=== PATIENT | male | born 1945 | race Caucasian/White ===

== ENCOUNTER 2017-11-21 18:06 | Inpatient (IN) ==
[2017-11-21] MEDS ORDERED: Naloxone 0.4 MG/ML INJ IVP PRN (23:02)
[2017-11-21] MEDS ORDERED: *HR* OxyCODONE/APAP 10/325 TABLET PO PRN (23:07)
[2017-11-21] MEDS ORDERED: *HR* Dextrose 50 % in Water (Syg) 50 ML SYRINGE IVP PRN (23:25)
[2017-11-21] MEDS ORDERED: D5% in Water 1,000 ML IVC PRN (23:25)
[2017-11-21] MEDS ORDERED: Dextrose Gel 15 GM/37.5 ML TUBE PO PRN ×2 (23:25)
[2017-11-21] MEDS: Insulin LISPRO 300 UNITS/3 ML VIAL SQ SCH (23:39)
[2017-11-21] MEDS: *HR* OxyCODONE Immed Rel 5 MG TABLET PO SCH (23:40)
[2017-11-22] MEDS ORDERED: Ipratropium/Albuterol Neb 3 ML IH PRN (02:52)
[2017-11-22 05:29] LABS: Hemoglobin 9.5 g/dL (12.9-16.9); Mean Corpuscular HGB Conc 32.8 g/dL (31.6-35.5); Mean Corpuscular Hemoglobin 30.5 pg (28.0-33.3); Mean Corpuscular Volume 93.2 fL (83.0-100.0); Mean Platelet Volume 11.6 fL (9.4-12.4); Platelet Count 127 K/mcL (140-400); Red Blood Count 3.11 M/mcL (4.19-5.50); Red Cell Distribution Width 12.4 % (11.5-14.5)
[2017-11-22] MEDS: Insulin LISPRO 300 UNITS/3 ML VIAL SQ SCH ×3 (05:38→19:55)
[2017-11-22 05:51] LABS: Calcium 8.8 mg/dL (8.6-10.3); Potassium 5.7 mEq/L (3.5-5.1)
--- NOTE | 2017-11-22 06:37 | Internal Med History&Physical ---
Date of Encounter: 11/21/17 Time of Encounter: 22:00 Internal Medicine - H&P: HPI Chief complaint: CHF Admitted From: Hospital to Hospital Transfer Plans for Post Hospital Care: Home History of present illness: Mr. Lewis is a 72 year old male Patient presented to the [facility] for a 4 day history of a cough. He states that he feels a rattling in his chest, felt shortness of breath and it has progressively worsened. Worse when laying down, denies sick contacts. He has a significant past medical history of 3 MIs, and has 10 cardiac stents. He also has a history diabetes and multiple kidney stones, and feels like he may have another one now. He denies chest pain, nausea, vomiting, diarrhea and constipation. At the [facility] EKG was NSR with a rate of 53, QTc of 421. Chest x-ray showed mild congestion. BNP 1556. [facility] documentation not complete, despite 2 attempts at obtaining records. From what was sent with the patient he did receive 20mg of lasix at the [facility] and is urinating. Upon my assessment patient states that he still hears fluid in his lungs when he breaths. Past Med Surg Social Fam HX - Past Medical History Medical history: diabetes, kidney stones, myocardial infarction, renal disease Psychiatric history: no psych history - Past Surgical History Surgical History: appendectomy Additional surgical history: 10 CARDIAC STENTS - Social History Smoking Status: Never smoker Smokeless Tobacco Status: No Alcohol use: none Drug use: none Internal Medicine - H&P: Meds Aspirin 325 mg PO DAILY 10/31/15 [History] Cholecalciferol (D-3) [Vitamin D] 1,000 unit PO DAILY 10/31/15 [History] Clopidogrel [Plavix] 75 mg PO DAILY 10/31/15 [History] Cyanocobalamin (Vitamin B-12) [Vitamin B12] 1,000 mcg PO DAILY 10/31/15 [History ] Ferrous Sulfate 325 mg PO DAILY 10/31/15 [History] Glimepiride [Amaryl] 2 mg PO QAM 10/31/15 [History] Linagliptin [Tradjenta] 5 mg PO DAILY 10/31/15 [History] Lisinopril 2.5 mg PO DAILY 10/31/15 [History] Metformin HCl [Glucophage] 1,000 mg PO BID 10/31/15 [History] Nitroglycerin [Nitrostat] 0.4 mg SL AD PRN 10/31/15 [History] Nystatin Cream [Mycostatin Cream] 1 appl TP PRN PRN 10/31/15 [History] Oxycodone HCl/Acetaminophen [Percocet 10-325 mg Tablet] 1 tab PO Q6H PRN [History] Tamsulosin [Flomax] 0.4 mg PO DAILY 10/31/15 [History] Zolpidem [Ambien] 10 mg PO HS 10/31/15 [History] Ciprofloxacin [Cipro] 500 mg PO ONCE #1 tablet 11/01/15 [Rx] Docusate [Colace] 100 mg PO BID #60 capsule 11/01/15 [Rx] Phenazopyridine HCl [Pyridium] 200 mg PO TIDAC #12 tab 11/01/15 [Rx] OxyCODONE Immed Rel [Roxicodone 5 MG] 10 mg PO Q8HR 11/21/17 [History] 3 Allergy/AdvReac Type Severity Reaction Status Date / Time Iodinated Contrast- Oral and Allergy Rash Verified 10/31/15 08:36 IV Dye [Iodinated Contrast Media - IV Dye] All Systems PM: A 10-system review of systems was performed and is negative for pertinent findings except as documented above in the HPI. - Constitutional Vitals: Temp Pulse Resp BP Pulse Ox 98.7 F 54 17 103/42 94 11/22/17 04:45 11/22/17 04:45 11/22/17 04:45 11/22/17 04:45 11/22/17 04:45 General appearance: Present: cooperative, mild distress, A&O X 3, pleasant, answers questions appropriately Exam: as above - Head Head exam: Present: normal inspection - Eye Eye exam: Present: EOMI, normal appearance - Respiratory Respiratory exam: Present: rhonchi, wheezes - Cardiovascular Cardiovascular exam: Present: RRR. Absent: diastolic murmur, systolic murmur - GI/Abdominal GI/Abdominal exam: Present: normal bowel sounds, soft - Extremities Exam Extremities exam: Present: warm, radial pulses palpable and symmetrical. Absent : tenderness - Neurological Exam Neurological exam: Present: motor sensory deficit. Absent: facial droop, speech deficit Additional comments: Bilateral neuropathy, can not feel feet at baseline. - Skin Skin exam: Present: dry, normal color, warm Internal Med - H&P Results - Labs CBC & Chem 7: 11/22/17 04:49 11/22/17 04:49 Labs: Short CBC 11/22/17 Range/Units 04:49 WBC 7.2 (4.3-11.1) K/mcL Hgb 9.5 L (12.9-16.9) g/dL Hct 29.0 L (37.5-50.1) % Plt Count 127 L (140-400) K/mcL BMP 11/22/17 04:49 Sodium 135 L Potassium 5.7 H Chloride 111 H Carbon Dioxide 16 L BUN 54 H Creatinine 2.61 H Glucose 404 H Calcium 8.8 - Assessment and plan (1) CHF (congestive heart failure) Current Visit: Yes Status: Acute Assessment and plan: Patient has significant cardiac history, but no record of echo in our system. Patient unsure if he has been told he has CHF in the past. BNP 1556 at [facility]. Echo in the AM Lasix given at [facility] ER. Patient urinating, will monitor I&Os and daily weights. Caution use of lasix as patient has poor renal function. Consider cardiac consult after echocardiogram. Qualifiers: Qualified Code(s): I50.9 - Heart failure, unspecified (2) Hyperkalemia Current Visit: Yes Status: Acute Assessment and plan: At [facility] patient's potassium was 5.5, and he was given insulin, albuterol, Kayexalate. He also got 20mg of lasix. Repeat labs in the morning. (3) Diabetes Current Visit: Yes Status: Acute Assessment and plan: Patient takes metformin, linagliptin and glimepiride at home. Will hold home meds while inpatient. sliding scale insulin low dose Monitor sugars Q6H Qualifiers: Diabetes mellitus type: type 2 Diabetes mellitus prison insulin use: without ferry terminal supervisor use Diabetes mellitus complication status: with neurologic complications Diabetes mellitus complication detail: with polyneuropathy Qualified Code(s): E11.42 - Type 2 diabetes mellitus with diabetic polyneuropathy (4) CKD (chronic kidney disease) stage 4, GFR 15-29 ml/min Current Visit: Yes Status: Acute Assessment and plan: Monitor kidney function as patient received lasix at [facility] Recheck labs in AM. Consider nephrology consult if worsening. - Time Spent With Patient Total time spent is greater than 50% in coordination of care (as documented) at patient's floor/unit and/or counseling patient: Greater than 35 minutes
[2017-11-22] MEDS: Aspirin 325 MG TABLET PO SCH (08:06)
[2017-11-22] MEDS: *HR* OxyCODONE Immed Rel 5 MG TABLET PO SCH ×2 (08:06→16:00)
[2017-11-22] MEDS ORDERED: Albumin 25% 12.5gm/50mL 12.5 GM/50 ML IV.SOLN IVPB ONE (13:08)
[2017-11-22] MEDS ORDERED: Furosemide 40 MG/4 ML VIAL IVP ONE (13:12)
--- NOTE | 2017-11-22 14:46 | Nephrology Consult Note ---
Date of Encounter: 11/22/17 Time of Encounter: 14:00 Assessment and Plan (1) JAYESH (acute kidney injury) Current Visit: Yes Status: Acute Elevated SCr in the setting of possible volume overload rule out cardiorenal syndrome Agree with diuresis: s/p lasix 40mg x1 with albumin already, will continue Will check urine for UA. Will check urine urea, creatinine et al. Agree with avoiding nephrotoxins if possible Discussed at length with pt and family goals of care. No acute indication for thermometer maker at this time but pt open to this on a temporary basis for now (2) CKD (chronic kidney disease) stage 3, GFR 30-59 ml/min Current Visit: Yes Status: Acute Baseline GFR in the 30s (3) CHF (congestive heart failure) Current Visit: Yes Status: Acute Strict I/Os advised Agree with echo, results pending Flud restriction advised at 1.5 liters a day Duonebs prn Qualifiers: Qualified Code(s): I50.9 - Heart failure, unspecified (4) Hyperkalemia Current Visit: Yes Status: Acute Potassium noted at 5.7, should improve with diuresis Renal diet also advised History of Present Illness - Reason for Consult Consult date: 11/22/17 Acute Kidney Injury, Chronic Kidney Disease Requesting physician: Farrah Velasco - History of Present Illness 72 y o male with PMH of stage 3 CKD, DM, CAD s/ps multiple stents and kidney stones admitted as a transfer from [facility] where he presented with several day of SOB. Renal consulted for worsening renal fxn with SCr noted at 2.61, GFR 24 ( baseline GFR typically in the 30s) and volume overload. Pt was just seen by my associate last month at which time, he was stable in renal fxn. He denies any new meds. No NSAIDs. Echo pending today. Potassium noted elevated at 5.7 s/p lasix 20mg at [facility] and kayexalate. Past Med Surg Social Fam HX - Past Medical History Medical history: diabetes, kidney stones, myocardial infarction, renal disease Psychiatric history: no psych history - Past Surgical History Surgical History: appendectomy Additional surgical history: 10 CARDIAC STENTS - Social History Smoking Status: Never smoker Smokeless Tobacco Status: No Alcohol use: none Drug use: none Medications and Allergies Aspirin 325 mg PO DAILY 10/31/15 [History] Cholecalciferol (D-3) [Vitamin D] 5,000 mg PO DAILY 10/31/15 [History] Clopidogrel [Plavix] 75 mg PO DAILY 10/31/15 [History] Ferrous Sulfate 325 mg PO BID 10/31/15 [History] Linagliptin [Tradjenta] 5 mg PO DAILY 10/31/15 [History] Lisinopril 2.5 mg PO DAILY 10/31/15 [History] Nitroglycerin [Nitrostat] 0.4 mg SL AD PRN 10/31/15 [History] Zolpidem [Ambien] 10 mg PO HS 10/31/15 [History] Docusate [Colace] 100 mg PO BID #60 capsule 11/01/15 [Rx] Gabapentin [Neurontin] 600 mg PO TID 11/22/17 [History] Levothyroxine Sodium [Levoxyl] 75 mcg PO QAM 11/22/17 [History] Methadone 5 mg PO Q8HR 11/22/17 [History] Omeprazole [PriLOSEC] 40 mg PO DAILY 11/22/17 [History] OxyCODONE Immed Rel [Roxicodone 10 MG] 10 mg PO QID 11/22/17 [History] Pioglitazone HCl [Actos] 45 mg PO DAILY 11/22/17 [History] Sodium Bicarbonate 650 mg PO BID 11/22/17 [History] Tamsulosin HCl [Flomax] 0.4 mg PO DAILY 11/22/17 [History] 3 Allergy/AdvReac Type Severity Reaction Status Date / Time Iodinated Contrast- Oral and Allergy Rash Verified 11/22/17 10:50 IV Dye [Iodinated Contrast Media - IV Dye] Review of Systems All Systems: reviewed and no additional remarkable complaints except as stated ( 10 systems reviewed) Exam - Vital Signs Vital signs: Initial Vital Signs Temp Pulse Resp BP Pulse Ox 98.7 F 72 17 147/70 97 11/21/17 20:21 11/21/17 20:21 11/21/17 20:21 11/21/17 20:21 11/21/17 20:21 Vital Signs - Last 8 Hours Temp Pulse Resp BP Pulse Ox 11/22/17 11:13 97.7 F 58 17 123/56 96 11/22/17 09:30 95 11/22/17 07:59 97.7 F 54 18 125/65 95 Intake and Output 11/21/17 11/22/17 11/22/17 23:59 07:59 15:59 Intake Total Balance Intake: Oral Other: Weight 95.5 kg Blood Glucose* 380 311 120 Patient Weight 11/22/17 23:59 Weight 95.5 kg - General Appearance General appearance: well-developed, well-nourished EENT: ATNC, mucous membranes moist Neck: no JVD, supple Respiratory: course breath sounds Cardiology: edema (trace LE bilat), normal S1, normal S2 Gastrointestinal: no tenderness, no guarding Integumentary: warm and dry Neurologic: no focal deficit Musculoskeletal: no deformities Psychiatric: mood/affect appropriate Results - Lab Results 11/22/17 04:49 11/22/17 04:49 Most recent lab results Calcium 8.8 mg/dL (8.6-10.3) 11/22/17 04:49 Consult Discharge Plan - Plan Referrals: Fernanda Escalante MD [Primary Care Provider] -
--- NOTE | 2017-11-22 15:15 | Internal Med Progress Note ---
Hospitalist Progress Note - Encounter Date of Encounter: 11/22/17 Time of Encounter: 11:55 - Subjective Interval History: Patient seen and examined this morning. No acute overnight events. Admitted for shortness of breath. Minimal improvement in shortness of breath. No fever or chills. - Exam Vitals: Temp Pulse Resp BP Pulse Ox 97.7 F 58 17 123/56 96 11/22/17 11:13 11/22/17 11:13 11/22/17 11:13 11/22/17 11:13 11/22/17 11:13 Exam: Head exam: normal inspection Eye exam: EOMI, normal appearance Respiratory exam: diffuse rhonchi, wheezes, mildly decrease air entry Cardiovascular exam: RRR. S1, S2 normal, no diastolic murmur, systolic murmur GI/Abdominal exam: normal bowel sounds, soft Extremities exam: warm, radial pulses palpable and symmetrical. no tenderness Neurological exam: no motor sensory deficit. nofacial droop, speech deficit. Decreased sensation in feet b/l Skin exam: dry, normal color, warm - Summary of Assessment and Plan Summary of Assessment and Plan: CHF - With significant cardiac history, No ECHO record. BNP 1556 at [facility]. - f/u Echo - Strict I/O, salt and fluid restriction. - Will give lasix with albumin for diuresing and given hyperkalemia. Discussed with Nephrology. - Discussed in detail with patient about possibility of worsening kidney function with diuresis and short term need for dialysis. - Also wheezing on exam. Denies h/o smoking. Will start duonebs. edema occasionally can lead to wheezing. Hyperkalemia - At [facility] ER patient's potassium was 5.5, and he was given insulin, albuterol , Kayexalate, 20 mg IV lasix. - Potassium still elevated - Will attempt diuresis with albumin. Diabetes - hold metformin, linagliptin and glimepiride - sliding scale insulin low dose. Will introduce levemir cautiously given CKD tomorrow after monitoring blood sugar. - Accuchecks. CKD stage 3n - Monitor kidney function as patient received lasix at [facility] - Recheck labs in AM. - Nephrology consulted - Time Spent with Patient Total time spent is greater than 50% in coordination of care (as documented) at patient's floor/unit and/or counseling patient: Internal Medicine: Result - Labs CBC & Chem 7: 11/22/17 04:49 11/22/17 04:49 Labs: Short CBC 11/22/17 Range/Units 04:49 WBC 7.2 (4.3-11.1) K/mcL Hgb 9.5 L (12.9-16.9) g/dL Hct 29.0 L (37.5-50.1) % Plt Count 127 L (140-400) K/mcL BMP 11/22/17 04:49 Sodium 135 L Potassium 5.7 H Chloride 111 H Carbon Dioxide 16 L BUN 54 H Creatinine 2.61 H Glucose 404 H Calcium 8.8 Consult Discharge Plan - Plan Referrals: Fernanda Escalante MD [Primary Care Provider] -
[2017-11-22] MEDS ORDERED: Furosemide 40 MG/4 ML VIAL ONE (15:38)
[2017-11-22] MEDS: Gabapentin 300 MG CAPSULE PO SCH ×2 (15:41→22:15)
[2017-11-22] MEDS: *HR* Methadone 5 MG TABLET PO SCH (16:00)
[2017-11-22 16:08] LABS: Bilirubin,Urine Negative (Negative); Blood,Urine Negative (Negative); Clarity,Urine Clear (Clear); Color,Urine Yellow (Yellow); Glucose,Urine (UA) Normal (Normal); Ketones,Urine Negative (Negative); Leukocyte Esterase,Urine Negative (Negative); Nitrite,Urine Negative (Negative); PH,Urine 5.5 pH Units (5.0-8.0); Protein,Urine Negative (Neg-Trace); Specific Gravity,Urine 1.017 (1.010-1.025); Urobilinogen,Urine Normal (Normal)
[2017-11-22 16:16] LABS: Sodium, Urine 111.5 mEq/L
[2017-11-22] MEDS: Ipratropium/Albuterol Neb 3 ML IH SCH ×3 (16:16→21:35)
[2017-11-22] MEDS ORDERED: NON-FORMULARY MEDICATION 1 EACH EACH (Oxycodone Immed Rel 10 MG) PO SCH (17:00)
[2017-11-22] MEDS: Albumin 25% 25gram/100mL 25 GM/100 ML IV.SOLN IVPB SCH (19:47)
[2017-11-22] MEDS: Furosemide 40 MG/4 ML VIAL IVP SCH (22:14)
[2017-11-23] MEDS: *HR* Methadone 5 MG TABLET PO SCH ×4 (00:46→23:44)
[2017-11-23] MEDS: *HR* OxyCODONE Immed Rel 5 MG TABLET PO SCH ×4 (00:47→23:44)
[2017-11-23] MEDS: Ipratropium/Albuterol Neb 3 ML IH SCH ×4 (04:07→21:32)
[2017-11-23 07:38] LABS: Basophils % 0.2 %; Eosinophils # 0.1 K/mcL (0.0-0.6); Eosinophils % 0.9 %; Hematocrit 30.4 % (37.5-50.1); Hemoglobin 9.9 g/dL (12.9-16.9); Immature Granulocytes % 0.5 % (0-4); Lymphocytes # 1.6 K/mcL (0.6-4.6); Lymphocytes % 17.6 %; Mean Corpuscular HGB Conc 32.6 g/dL (31.6-35.5); Mean Corpuscular Volume 92.1 fL (83.0-100.0); Mean Platelet Volume 11.7 fL (9.4-12.4); Monocytes # 0.6 K/mcL (0.0-1.3); Monocytes % 6.8 %; Neutrophils # 6.5 K/mcL (1.6-8.9); Platelet Count 137 K/mcL (140-400); Red Cell Distribution Width 12.9 % (11.5-14.5)
[2017-11-23 07:46] LABS: Calcium 9.6 mg/dL (8.6-10.3); Potassium 4.7 mEq/L (3.5-5.1)
[2017-11-23] MEDS: Albumin 25% 25gram/100mL 25 GM/100 ML IV.SOLN IVPB SCH ×2 (07:52→17:48)
[2017-11-23] MEDS: Insulin LISPRO 300 UNITS/3 ML VIAL SQ SCH ×4 (07:53→20:45)
[2017-11-23] MEDS: Cholecalciferol (D-3) 1,000 UNIT TABLET PO SCH (09:52)
[2017-11-23] MEDS: Gabapentin 300 MG CAPSULE PO SCH ×3 (09:52→20:40)
[2017-11-23] MEDS: Aspirin 325 MG TABLET PO SCH (09:52)
[2017-11-23] MEDS: Furosemide 40 MG/4 ML VIAL IVP SCH ×2 (09:52→17:47)
--- NOTE | 2017-11-23 11:32 | Nephrology Progress Note ---
Date of Encounter: 11/23/17 Time of Encounter: 11:30 - Assessment and Plan (1) JAYESH (acute kidney injury) Current Visit: Yes Status: Acute SCr slightly improved at 2.51, GFR 25 UOP not documented yesterday, will re-emphasize strict I/Os with staff Continue current albumin/lasix regimen Urine studies unremarkable, Feurea noted at 36.6% Continue to avoid nephrotoxins if possible (2) CKD (chronic kidney disease) stage 3, GFR 30-59 ml/min Current Visit: Yes Status: Acute Baseline GFR in the 30s (3) CHF (congestive heart failure) Current Visit: Yes Status: Acute Strict I/Os advised Eho shows EF at 60% with diastolic function undetermined Flud restriction advised at 1.5 liters a day Duonebs prn Qualifiers: Heart failure type: diastolic Heart failure chronicity: acute Qualified Code(s): I50.31 - Acute diastolic (congestive) heart failure (4) Hyperkalemia Current Visit: Yes Status: Acute resolved, continue renal diet Subjective Interval history: Pt seen and examined with at bedside, feels better overall and breathing much better. Pt reports lots of UOP overnight though not documented Objective - Vital Signs Vital signs: Vital Signs Temp Pulse Resp BP Pulse Ox 11/23/17 08:27 23 97 11/23/17 08:23 98.1 F 81 17 126/64 95 11/23/17 04:07 16 97 11/23/17 03:52 98.3 F 57 17 138/68 97 11/23/17 00:24 98.1 F 59 17 131/69 97 11/22/17 21:35 16 98 11/22/17 19:30 97.7 F 55 17 127/67 95 11/22/17 16:19 18 97 11/22/17 16:18 97.7 F 54 18 131/71 97 11/22/17 16:07 97.7 F 54 18 131/71 97 Intake and Output 11/22/17 11/23/17 11/23/17 23:59 07:59 15:59 Intake Total 100 / 100 420 / 420 Output Total 0 / 0 500 / 500 Balance 100 / 100 -80 / -80 Intake: IV Fluids 100 / 100 100 / 100 Flexbumin 25 gm In 100 ml @ 60 100 / 100 100 / 100 mls/hr IVPB 0730,1630 ARIAN Rx#: [id number] Oral 0 / 0 320 / 320 Output: Urine 0 / 0 500 / 500 Other: Meal Breakfast Percent of Meal Consumed 25% # Voids 1 Blood Glucose* 180 EENT: Present: ATNC, mucous membranes moist Neck: Present: no JVD, supple Additional Comments: improved areation ant bilat Cardiology: Present: no edema, normal S1, normal S2 Gastrointestinal: Present: no tenderness, no guarding Integumentary: Present: warm and dry Neurologic: Present: no focal deficit Musculoskeletal: Present: no deformities Psychiatric: Present: mood/affect appropriate - Lab 11/23/17 06:37 11/23/17 06:37 Most recent lab results Calcium 9.6 mg/dL (8.6-10.3) 11/23/17 06:37 Urine Creatinine 103 mg/dL 11/22/17 15:50 Urine Sodium 111.5 mEq/L 11/22/17 15:50 - VTE Documentation of Mechanical Device: Intermittent pneumatic compression device Consult Discharge Plan - Plan Referrals: Fernanda Escalante MD [Primary Care Provider] -
--- NOTE | 2017-11-23 13:19 | Internal Med Progress Note ---
Hospitalist Progress Note - Encounter Date of Encounter: 11/23/17 Time of Encounter: 11:55 - Subjective Interval History: Patient seen and examined this morning. No acute overnight events. No fever or chills. Feeling better. Having good urine output. - Exam Vitals: Temp Pulse Resp BP Pulse Ox 97.9 F 74 19 121/65 94 11/23/17 12:55 11/23/17 12:55 11/23/17 12:55 11/23/17 12:55 11/23/17 12:55 Exam: Head exam: normal inspection Eye exam: EOMI, normal appearance Respiratory exam: diffuse rhonchi, wheezes, mildly decrease air entry Cardiovascular exam: RRR. S1, S2 normal, no diastolic murmur, systolic murmur GI/Abdominal exam: normal bowel sounds, soft Extremities exam: warm, radial pulses palpable and symmetrical. no tenderness Neurological exam: no motor sensory deficit. nofacial droop, speech deficit. Decreased sensation in feet b/l Skin exam: dry, normal color, warm - Summary of Assessment and Plan Summary of Assessment and Plan: CHF - With significant cardiac history, No ECHO record. BNP 1556 at [facility]. - Echo with EF of 60, intermediate diastolic diastolic function. - Strict I/O, salt and fluid restriction. Having good urine output but not charted well. - c/w lasix with albumin. - Discussed in detail with patient about possibility of worsening kidney function with diuresis and short term need for dialysis. JAYESH on CKD stage 3 - c/w albumin and lasix. FEurea 36 - Nephrology consulted Cough and wheezing - No h/o smoking. h/o previous bronchitis. Some h/o second hand exposure. 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 - Will start steroids and z-oralia. c/w Duonebs. Anemia - Will get iron panel tomorrow. No active bleeding - Possible from Renal disease. Hyperkalemia - resolved Diabetes - hold metformin, linagliptin and glimepiride - sliding scale insulin low dose. Will introduce levemir cautiously given CKD tomorrow after monitoring blood sugar. - Accuchecks. - Time Spent with Patient Total time spent is greater than 50% in coordination of care (as documented) at patient's floor/unit and/or counseling patient: Internal Medicine: Result - Labs CBC & Chem 7: 11/23/17 06:37 11/23/17 06:37 Labs: Short CBC 11/23/17 Range/Units 06:37 WBC 8.8 (4.3-11.1) K/mcL Hgb 9.9 L (12.9-16.9) g/dL Hct 30.4 L (37.5-50.1) % Plt Count 137 L (140-400) K/mcL Neutrophils # 6.5 (1.6-8.9) K/mcL BMP 11/23/17 06:37 Sodium 139 Potassium 4.7 Chloride 106 Carbon Dioxide 22 L BUN 59 H Creatinine 2.51 H Glucose 188 H Calcium 9.6 Urine 11/22/17 Range/Units 15:50 Urine Color Yellow (Yellow) Urine Clarity Clear (Clear) Urine pH 5.5 (5.0-8.0) pH Units Ur Specific [place] 1.017 (1.010-1.025) Urine Protein Negative (Neg-Trace) mg/dL Urine Glucose (UA) Normal (Normal) mg/dL - Impressions Impressions Echocardiogram 11/22/17 02:57 Impressions: LVEF 60%. Normal right ventricular structure and function. Mild mitral regurgitation. No pulmonary hypertension. Left Ventricular Wall Motion: Rest Echo Findings All wall segments showed normal motion. Findings: Study Quality * Technically adequate exam. ECG Findings * Sinus bradycardia. Left Ventricle * LVEF 60%. * Normal LV chamber size and wall thickness. * Indeterminate diastolic function. Right Ventricle * Normal right ventricular structure and function. Left Atrium * Mildly dilated left atrium. Right Atrium * Normal right atrial size. Mitral Valve * Normal mitral valve function. * No mitral stenosis. * Mild mitral regurgitation. Aortic Valve * Trileaflet aortic valve. * No aortic stenosis. * No aortic regurgitation. Tricuspid Valve * Tricuspid valve not well visualized. * No tricuspid regurgitation. * Estimated RA pressure is 3 mmHg. Pulmonic Valve * Pulmonic valve is not well visualized. * No pulmonic stenosis. * No pulmonic regurgitation. Pulmonary Artery * Pulmonary artery not well visualized. Aorta * Normally sized aortic root. Pericardium * There is no pericardial effusion present. Interatrial Septum * No evidence of PFO by color Doppler. IVC * Normal IVC dimensions and inspiratory collapse. Chest X-Ray 11/22/17 15:22 IMPRESSION: No acute cardiopulmonary disease. D/ / Sanchez Mccray MD / Sanchez Mccray MD Interpreting Provider: Sanchez Mccray MD - VTE Documentation of Mechanical Device: Intermittent pneumatic compression device Consult Discharge Plan - Plan Referrals: Fernanda Escalante MD [Primary Care Provider] -
[2017-11-23] MEDS ORDERED: Azithromycin 250 MG TABLET PO ONE (14:06)
[2017-11-23] MEDS: predniSONE 20 MG TABLET PO SCH (15:00)
[2017-11-24] MEDS: Ipratropium/Albuterol Neb 3 ML IH SCH ×4 (03:43→22:27)
[2017-11-24 06:16] LABS: Hematocrit 27.9 % (37.5-50.1); Hemoglobin 9.4 g/dL (12.9-16.9); Immature Granulocytes % 0.5 % (0-4); Lymphocytes # 0.6 K/mcL (0.6-4.6); Lymphocytes % 9.3 %; Mean Corpuscular HGB Conc 33.7 g/dL (31.6-35.5); Mean Corpuscular Volume 92.1 fL (83.0-100.0); Mean Platelet Volume 11.4 fL (9.4-12.4); Monocytes # 0.2 K/mcL (0.0-1.3); Monocytes % 3.9 %; Neutrophils # 5.3 K/mcL (1.6-8.9); Platelet Count 116 K/mcL (140-400); Red Blood Count 3.03 M/mcL (4.19-5.50); Red Cell Distribution Width 12.4 % (11.5-14.5); Segmented Neutrophils % 86.3 %
[2017-11-24 06:41] LABS: Calcium 9.4 mg/dL (8.6-10.3); Potassium 4.9 mEq/L (3.5-5.1)
[2017-11-24 06:43] LABS: % Iron Saturation 18 % (20-55); Iron 41 mcg/dL (65-175); Transferrin 163 mg/dL (203-362)
[2017-11-24 07:01] LABS: Ferritin 343 ng/mL (20-250)
[2017-11-24] MEDS: Aspirin 325 MG TABLET PO SCH (08:03)
[2017-11-24] MEDS: *HR* OxyCODONE Immed Rel 5 MG TABLET PO SCH ×2 (08:03→15:49)
[2017-11-24] MEDS: predniSONE 20 MG TABLET PO SCH (08:03)
[2017-11-24] MEDS: Gabapentin 300 MG CAPSULE PO SCH ×2 (08:04→15:49)
[2017-11-24] MEDS: Cholecalciferol (D-3) 1,000 UNIT TABLET PO SCH (08:04)
[2017-11-24] MEDS: Albumin 25% 25gram/100mL 25 GM/100 ML IV.SOLN IVPB SCH ×2 (08:04→15:50)
[2017-11-24] MEDS: Insulin LISPRO 300 UNITS/3 ML VIAL SQ SCH ×7 (08:15→22:16)
[2017-11-24] MEDS ORDERED: Azithromycin 250 MG TABLET PO SCH (09:00)
[2017-11-24] MEDS: Furosemide 40 MG/4 ML VIAL IVP SCH (10:18)
[2017-11-24] MEDS: *HR* Methadone 5 MG TABLET PO SCH ×2 (10:18→15:50)
--- NOTE | 2017-11-24 11:12 | Internal Med Progress Note ---
Hospitalist Progress Note - Encounter Date of Encounter: 11/24/17 Time of Encounter: 11:10 - Subjective Interval History: Patient seen and examined this morning. Some flank pain. Breathing improving. Good urine output - Exam Vitals: Temp Pulse Resp BP Pulse Ox 97.8 F 67 16 116/50 94 11/24/17 07:32 11/24/17 07:32 11/24/17 09:05 11/24/17 07:32 11/24/17 09:05 Exam: Head exam: normal inspection Eye exam: EOMI, normal appearance Respiratory exam: diffuse rhonchi, wheezes, mildly decrease air entry Cardiovascular exam: RRR. S1, S2 normal, no diastolic murmur, systolic murmur GI/Abdominal exam: normal bowel sounds, soft Extremities exam: warm, radial pulses palpable and symmetrical. no tenderness Neurological exam: no motor sensory deficit. nofacial droop, speech deficit. Decreased sensation in feet b/l Skin exam: dry, normal color, warm. - Summary of Assessment and Plan Summary of Assessment and Plan: Cough and wheezing - No h/o smoking. h/o previous bronchitis. Some h/o second hand exposure. 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 - c/w steroids and z-oralia. c/w Duonebs. CHF - With significant cardiac history, No ECHO record. BNP 1556 at [facility]. - Echo with EF of 60, intermediate diastolic diastolic function. - Agree with renal that COPD explains more of his presentation than fluid overload. f/u CXR. Clinically in COPD exacerbation JAYESH on CKD stage 3 - c/w albumin. Lasix stopped given worsening GFR. - f/u Retroperitoneal ultrasound. - Nephrology consulted Anemia - Will get iron panel tomorrow. No active bleeding - Possible from Renal disease. Hyperkalemia - resolved Hypothyroidism - c/w home levothyroxin Diabetes - hold metformin, linagliptin and glimepiride - Not well controlled currently. Steroids contributory. c/w sliding scale insulin low dose. levemir dosage increased. c/w premeal insulin - Accuchecks. DVT ppx - heparin - Time Spent with Patient Total time spent is greater than 50% in coordination of care (as documented) at patient's floor/unit and/or counseling patient: Internal Medicine: Result - Labs CBC & Chem 7: 11/24/17 05:53 11/24/17 05:53 Labs: Short CBC 11/24/17 Range/Units 05:53 WBC 6.1 (4.3-11.1) K/mcL Hgb 9.4 L (12.9-16.9) g/dL Hct 27.9 L (37.5-50.1) % Plt Count 116 L (140-400) K/mcL Neutrophils # 5.3 (1.6-8.9) K/mcL BMP 11/24/17 05:53 Sodium 134 L Potassium 4.9 Chloride 101 Carbon Dioxide 21 L BUN 76 H Creatinine 3.12 H Glucose 467 H Calcium 9.4 - VTE Documentation of Mechanical Device: Intermittent pneumatic compression device Consult Discharge Plan - Plan Referrals: Fernanda Escalante MD [Primary Care Provider] -
--- NOTE | 2017-11-24 13:59 | Nephrology Progress Note ---
Date of Encounter: 11/24/17 Time of Encounter: 10:15 - Assessment and Plan (1) JAYESH (acute kidney injury) Current Visit: Yes Status: Acute Serum creatinine has worsened in comparison to yesterday, up to 3.12 from 2.51, GFR 20 The patient does have decent urine output, it is documented to be 1755 He does report that he is having some pain in his left flank which is similar to when he said kidney stones in the past however he denies passing any stone At this time we will hold Lasix as the patient's creatinine has worsened Check a retroperitoneal ultrasound to ensure that there is not an obstructive uropathy Continue to avoid nephrotoxins as able Suspected that some of her respiratory status may be due to COPD rather than fluid overload and CHF We will check a two-view chest x-ray at this time to determine what degree of fluid overload is present (2) CKD (chronic kidney disease) stage 3, GFR 30-59 ml/min Current Visit: Yes Status: Acute Baseline GFR in the 30s (3) CHF (congestive heart failure) Current Visit: Yes Status: Acute Strict I/Os advised Eho shows EF at 60% with diastolic function undetermined Flud restriction advised at 1.5 liters a day Duonebs prn Qualifiers: Heart failure type: diastolic Heart failure chronicity: acute Qualified Code(s): I50.31 - Acute diastolic (congestive) heart failure (4) History of nephrolithiasis Current Visit: Yes Status: Acute Patient has history of nephrolithiasis with significant stone burden Says that he is having pain in his left flank which is similar to previous stone We will check retroperitoneal ultrasound to ensure that there is no obstructive uropathy (5) Hyperkalemia Current Visit: Yes Status: Acute Resolved, continue renal diet Subjective Principal diagnosis: JAYESH on CKD Interval history: Patient's respiratory status continues to improve, he feels significantly better than he did previously. He did have an increase in his serum creatinine today, likely in response to the patient's increased use of diuretics. He otherwise has no acute complaints. Objective - Vital Signs Vital signs: Vital Signs Temp Pulse Resp BP Pulse Ox 11/24/17 11:26 97.5 F L 81 17 131/65 96 11/24/17 09:05 16 94 11/24/17 07:32 97.8 F 67 18 116/50 92 11/24/17 05:05 98.4 F 81 18 121/63 94 11/24/17 03:43 16 93 11/24/17 00:30 98.7 F 85 17 119/67 91 11/23/17 21:32 18 92 11/23/17 18:59 99.3 F 80 17 115/64 93 11/23/17 16:52 98.4 F 72 18 120/55 95 11/23/17 15:50 18 92 Intake and Output 11/23/17 11/24/17 11/24/17 23:59 07:59 15:59 Intake Total 580 / 580 500 / 500 460 / 460 Output Total 675 / 675 Balance -95 / -95 500 / 500 460 / 460 Intake: IV Fluids 100 / 100 100 / 100 Flexbumin 25 gm In 100 ml @ 60 100 / 100 100 / 100 mls/hr IVPB 0730,1630 [facility] Rx#: [id number] Oral 480 / 480 500 / 500 360 / 360 Output: Urine 675 / 675 Other: Meal Dinner Lunch Percent of Meal Consumed 30% 100% Weight 96.2 kg Blood Glucose* 385 430 397 Patient Weight 11/24/17 23:59 Weight 96.2 kg - General Appearance Exam: EENT: Present: ATNC, mucous membranes moist Neck: Present: no JVD, supple Pulmonary: Expiratory wheezes with superimposed rhonchi noted bilaterally, some crackles may be evident as well Cardiology: Present: no edema, normal S1, normal S2 Gastrointestinal: Present: no tenderness, no guarding Integumentary: Present: warm and dry Neurologic: Present: no focal deficit Musculoskeletal: Present: no deformities Psychiatric: Present: mood/affect appropriate - Lab 11/24/17 05:53 11/24/17 05:53 Most recent lab results Calcium 9.4 mg/dL (8.6-10.3) 11/24/17 05:53 Urine Creatinine 103 mg/dL 11/22/17 15:50 Urine Sodium 111.5 mEq/L 11/22/17 15:50 - VTE Documentation of Mechanical Device: Intermittent pneumatic compression device Consult Discharge Plan - Plan Referrals: Fernanda Escalante MD [Primary Care Provider] -
[2017-11-24] MEDS ORDERED: Insulin DETEMIR 100 UNIT/ML X5UNITS SQ ONE (15:26)
[2017-11-24] MEDS ORDERED: Nitroglycerin 0.4 MG TAB.SUBL SL PRN (18:52)
[2017-11-24] MEDS ORDERED: Nitroglycerin 0.4 MG TAB.SUBL SL ONE (18:54)
[2017-11-24] MEDS ORDERED: *HR* Heparin 5,000 UNIT/ML VIAL IVP PRN ×2 (19:23)
[2017-11-24] MEDS ORDERED: *HR* Metoprolol 5 MG/5 ML VIAL IVP ONE (19:23)
[2017-11-24] MEDS ORDERED: *HR* Heparin 5,000 UNIT/ML VIAL IVP ONE (19:23)
[2017-11-24] MEDS ORDERED: Heparin 25,000 UNIT/500 ML D5W 25,000 UNIT/500 ML BAG IVC SCH (19:30)
--- NOTE | 2017-11-24 19:58 | Event Note ---
Date of Encounter: 11/24/17 Time of Encounter: 19:00 Was called by the nurse that nurse was complaining of chest pain. On evaluation patient said chest pain in center of chest and both arm and he felt sleepy. EKG showed Afib with RVR and minimal ST elevation. Spoke to spanish medical interpreter. Likely chest pain from increased from increased demand for HR in 100-110s. Stat labs were drawn. Patient started on Heparin and metoprolol IV prn for rate control. Trend troponin. Will repeat EKG after HR controlled in 1 HR. Signed out to [facility] to follow up.
[2017-11-24 20:15] LABS: Hematocrit 26.8 % (37.5-50.1); Hemoglobin 9.1 g/dL (12.9-16.9); Mean Corpuscular Hemoglobin 31.2 pg (28.0-33.3); Mean Corpuscular Volume 91.8 fL (83.0-100.0); Mean Platelet Volume 11.9 fL (9.4-12.4); Platelet Count 119 K/mcL (140-400); Red Blood Count 2.92 M/mcL (4.19-5.50); Red Cell Distribution Width 12.5 % (11.5-14.5)
[2017-11-24 20:21] LABS: Prothrombin Time 11.7 Seconds (9.4-12.1)
[2017-11-24 20:35] VITALS: BP 144/73
[2017-11-24 20:42] LABS: Heparin anti-factor XA UFH 1.25 IU/mL (0.30-0.70)
[2017-11-24] MEDS ORDERED: Insulin DETEMIR 100 UNIT/ML X5UNITS SQ SCH ×2 (21:00)
--- NOTE | 2017-11-24 21:06 | Event Note ---
Date of Encounter: 11/24/17 Time of Encounter: 20:45 Follow EKG showed HR better. First troponin negative. Patient mentation altered. Following command and moving extremities to command but is not at baseline. CT negative for acute stroke. Still suspicious high. Will obtain stat MRI. Family insists on transferring to [facility]. Transfer is being arranged. Meanwhile will get stat MRI.
[2017-11-24] MEDS ORDERED: *HR* Heparin 5,000 UNIT/ML VIAL SQ SCH (22:00)
[2017-11-24] MEDS ORDERED: levETIRAcetam 250 MG TABLET PO ONE (22:30)
--- NOTE | 2017-11-27 15:54 | Electrocardiograph Report ---
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
--- NOTE | 2017-11-27 15:54 | Electrocardiograph Report ---
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
--- NOTE | 2017-11-27 15:56 | Electrocardiograph Report ---
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
--- NOTE | 2017-12-03 08:03 | Discharge Summary ---
Date of Encounter: 12/03/17 Time of Encounter: 08:01 Hospital course: Mr. Lewis is a 72 year old male with extensive history of coronary disease was admitted for shortness of breath. Initially thought to be due to CHF exacerbation with BNP of 1556. However patient also has significant smoking history on exam today. His shortness was breath was due to COPD exacerbation for which patient was started on prednisone and azithromycin. The patient had an echocardiogram that showed EF of 60% and indeterminant diastolic dysfunction. No wall motion abnormalities. Patient also had history of present illness. Nephrology was consulted. Patient had initial diuresis with Lasix and albumin given his CKD and initial suspicion of CHF. However later during the course of his difficulty breathing was deemed to be due to COPD diuresis was stopped. Patient was made aware of his kidney disease. Retroperitoneal ultrasound was unremarkable only with enlarged prostate. On the 3rd admission patient was reported by the nurse and family to have altered mental status while patient was getting chest x-ray when he also had a syncopal episode. EKG revealed A. fib with the changes concerning of ACS. Discussed case with on-call student records specialist. Symptoms and EKG changes consistent with A. fib with RVR. Patient was started on heparin. However patient continued to have altered mental status. He was not moving all his extremities on command and was able to follow command but much more lethargic. Initial head CT was negative for any acute hemorrhagic stroke. 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 Family was made aware of the imaging results and possibility of seizure episode. However family was insistent on transferring patient to [facility]. Family illnesses were followed and was patient subsequently transferred to [facility] by the night team. - Time Spent with Patient Total time spent providing and/or coordinating discharge services: - Discharge Medications Home Medications: Aspirin 325 mg PO DAILY 10/31/15 [History] Cholecalciferol (D-3) [Vitamin D] 5,000 mg PO DAILY 10/31/15 [History] Clopidogrel [Plavix] 75 mg PO DAILY 10/31/15 [History] Ferrous Sulfate 325 mg PO BID 10/31/15 [History] Linagliptin [Tradjenta] 5 mg PO DAILY 10/31/15 [History] Lisinopril 2.5 mg PO DAILY 10/31/15 [History] Nitroglycerin [Nitrostat] 0.4 mg SL AD PRN 10/31/15 [History] Zolpidem [Ambien] 10 mg PO HS 10/31/15 [History] Docusate [Colace] 100 mg PO BID #60 capsule 11/01/15 [Rx] Gabapentin [Neurontin] 600 mg PO TID 11/22/17 [History] Levothyroxine Sodium [Levoxyl] 75 mcg PO QAM 11/22/17 [History] Methadone 5 mg PO Q8HR 11/22/17 [History] Omeprazole [PriLOSEC] 40 mg PO DAILY 11/22/17 [History] OxyCODONE Immed Rel [Roxicodone 10 MG] 10 mg PO QID 11/22/17 [History] Pioglitazone HCl [Actos] 45 mg PO DAILY 11/22/17 [History] Sodium Bicarbonate 650 mg PO BID 11/22/17 [History] Tamsulosin HCl [Flomax] 0.4 mg PO DAILY 11/22/17 [History] Allergies/Adverse Reactions: 3 Allergy/AdvReac Type Severity Reaction Status Date / Time Iodinated Contrast- Oral and Allergy Rash Verified 11/22/17 10:50 IV Dye [Iodinated Contrast Media - IV Dye] Date of admission: 11/24/17 07:40 Primary care physician: Fernanda Escalante MD Consults: 11/22/17 11:56 Consult to Nephrology [CONS] Routine Consulting Provider: [facility]/HERI/DUNCAN/MUMTAZ Reason for Consult: CKD, CHF, Fluid management Call Completed: Yes 11/24/17 14:58 Consult to Nutrition [CONS] Routine Comment: Consulting Provider: NUTRITION Reason for Dietary Consult: Diet Education - Constitutional Vitals: Temp Pulse Resp BP Pulse Ox 97.1 F L 82 17 144/73 98 11/24/17 20:30 11/24/17 20:30 11/24/17 20:30 11/24/17 20:30 11/24/17 20:30 General appearance: Present: cooperative, mild distress, A&O X 3, pleasant, answers questions appropriately Exam: NA - Patient Status Disposition: Transfer Hospital Swing Bed Condition: Serious - Discharge Instructions Follow Up With: Fernanda Escalante MD [Primary Care Provider] - - VTE Documentation of Mechanical Device: Intermittent pneumatic compression device
== END 2017-11-24 22:17 | disposition other institution (70) | DRG 291 ==
LOC: 2ANU → SUATTDRO 19:55
PROVIDERS: ADMIT Internal Medicine; ATTEND Internal Medicine